=== PATIENT | female | born 1980 | race Caucasian/White ===

== ENCOUNTER 2021-01-23 15:17 | Outpatient (REF) | payer MEDICAID, OTHER, SELFPAY ==
--- NOTE | ~2021-01-23 | MM_ITS ---
EXAMINATION: MM SCREENING DIGITAL BREAST TOMOSYNTHESIS, BILATERAL CLINICAL INFORMATION: Screening. Asymptomatic. The lifetime risk of breast cancer based on the Tyrer-Cuzick Model is 6%. COMPARISON: Mammography: 04/06/2019, 04/04/2018, 02/16/2017 TECHNIQUE: Digital breast tomosynthesis is performed in both the craniocaudal and mediolateral oblique views along with computer-aided detection (CAD). Synthesized 2D images are generated from the tomosynthesis. Additional right CC view is provided. FINDINGS: There are scattered areas of fibroglandular density (ACR BI-RADS breast composition Category b). There are no significant masses, abnormal calcifications, or other abnormalities. There is a biopsy clip marker again noted left breast mid upper outer quadrant. There are stable punctate regional calcifications upper outer left breast. Parenchymal pattern is similar to prior studies. MM/MM tomosynthesis screening BI IMPRESSION: No mammographic evidence of malignancy. ASSESSMENT: BI-RADS 2: Benign RECOMMENDATION: Routine annual mammography screening. This patient's information was entered into a reminder system with a target due date for their next mammogram.
== END 2021-01-23 15:18 | disposition home or self-care (01) ==
LOC: HO.MAMMO 15:17
PROVIDERS: Visit Provider Advanced Practice Midwife
DX: Z12.31 Encounter for screening mammogram for malignant neoplasm of breast (principal)
CPT/HCPCS: 77063; 77067

== ENCOUNTER 2022-01-20 13:20 | Outpatient (REF) | payer MEDICAID, OTHER, SELFPAY ==
--- NOTE | ~2022-01-20 | MM_ITS ---
EXAMINATION: MM DIAGNOSTIC DIGITAL BREAST TOMOSYNTHESIS, BILATERAL US DIAGNOSTIC ULTRASOUND BREAST, RIGHT CLINICAL INFORMATION: Due for yearly. Right lateral breast pain for 2 weeks. No palpable mass or discharge. Prior benign left stereotactic biopsy 2016 (benign breast tissue with no specific microscopic abnormality. Multiple microcalcifications present). The lifetime risk of breast cancer based on the Tyrer-Cuzick Model is 6%. COMPARISON: Mammography: 01/23/2021, 04/06/2019, 04/04/2018, 02/16/2017, 07/21/2016, 07/12/2016 TECHNIQUE: Digital breast tomosynthesis is performed in both the craniocaudal and mediolateral oblique views along with computer-aided detection (CAD). Synthesized 2D images are generated from the tomosynthesis. Ultrasound right breast is targeted to the outer breast in area of patient symptoms. Grayscale imaging and color Doppler are performed without and with harmonics. FINDINGS: There are scattered areas of fibroglandular density (ACR BI-RADS breast composition Category b). Parenchymal pattern is similar to prior studies and there is no developing density or interval mass or architectural abnormality. No abnormal calcifications. Left breast again has biopsy clip marker mid upper outer quadrant. There are numerous uniform small punctate round calcifications similar to prior diagnostic exams. The axilla are unremarkable. No skin thickening or coarsening of the Niranjan's ligaments. Ultrasound right breast demonstrates no cystic or solid mass or architectural abnormality or focal duct ectasia. No skin thickening or edema tracking in soft tissue planes. Results are discussed with the patient at time of visit, using an wastewater operator. MM/MM tomosynthesis diagnostic BI IMPRESSION: -No mammographic evidence of malignancy or inflammatory changes. -Unremarkable right breast ultrasound. ASSESSMENT: BI-RADS 2: Benign RECOMMENDATION: 1. Patient's right breast pain should be managed based on the clinical impression. 2. Otherwise, routine annual screening mammography. This patient's information was entered into a reminder system with a target due date for their next mammogram.
== END 2022-01-20 13:21 | disposition home or self-care (01) ==
LOC: HO.MAMMO 13:20
PROVIDERS: Visit Provider Advanced Practice Midwife
DX: N64.4 Mastodynia (principal)
CPT/HCPCS: 76642; 77062; 77066

== ENCOUNTER 2022-12-16 13:55 | Outpatient (REF) | payer MEDICAID, OTHER, SELFPAY | END 2022-12-16 13:56 | disposition home or self-care (01) | LOC: HO.MAMMO 13:55 | PROVIDERS: PCP Internal Medicine; Visit Provider Internal Medicine | DX: Z13.89 Encounter for screening for other disorder (principal) ==

== ENCOUNTER 2023-01-24 16:00 | Outpatient (REF) | payer MEDICAID, OTHER, SELFPAY ==
--- NOTE | ~2023-01-24 | MM_ITS ---
EXAMINATION: MM SCREENING DIGITAL BREAST TOMOSYNTHESIS, BILATERAL CLINICAL INFORMATION: Screening. Asymptomatic. COMPARISON: Mammography: This study is compared with prior exams dating back to 2019. TECHNIQUE: Digital breast tomosynthesis is performed in both the craniocaudal and mediolateral oblique views along with computer-aided detection (CAD). Synthesized 2D images are generated from the tomosynthesis. FINDINGS: There are scattered areas of fibroglandular density (ACR BI-RADS breast composition Category b). There are no significant masses, abnormal calcifications, or other abnormalities. There is a tissue marker in the left breast from prior benign percutaneous biopsy. There are scattered, unchanged, benign calcifications in the upper-outer quadrant of the left breast. MM/MM tomosynthesis screening BI IMPRESSION: No mammographic evidence of malignancy. ASSESSMENT: BI-RADS BI-RADS 2 - Benign Findings RECOMMENDATION: Routine annual mammography screening. 1 year F/U This examination should not preclude the clinical evaluation of a suspicious palpable abnormality. This patient's information was entered into a reminder system with a target due date for their next mammogram.
== END 2023-01-24 16:01 | disposition home or self-care (01) ==
LOC: HO.MAMMO 16:00
PROVIDERS: PCP Internal Medicine; Visit Provider Internal Medicine
DX: Z12.31 Encounter for screening mammogram for malignant neoplasm of breast (principal)
CPT/HCPCS: 77063; 77067

== ENCOUNTER → 2023-01-24 16:15 | Outpatient (BNV) | payer SELFPAY | PROVIDERS: PCP Internal Medicine; Visit Provider Radiology Diagnostic Radiology | DX: Z12.31 Encounter for screening mammogram for malignant neoplasm of breast (principal) | CPT/HCPCS: 77063; 77067 ==

== ENCOUNTER 2023-02-16 08:27 | Outpatient (REF) | payer MEDICAID, OTHER, SELFPAY ==
[2023-02-16 14:21] LABS: MANUAL DIFF FLAG NO
[2023-02-16 14:24] LABS: Basophils Absolute Auto 0.1 X10*3/uL (0.0-0.2); Eosinophils Absolute Auto 0.2 X10*3/uL (0.0-0.4); Eosinophils Percent Auto 3.6 % (0-4); Hematocrit 39.6 % (37.0-47.0); Hemoglobin 13.2 g/dl (12.0-16.0); Imm Gran Abs Auto 0.02 X10*3/uL (0.00-0.03); Imm Gran Pct Auto 0.4 % (0.0-0.4); Lymphocytes Absolute Auto 1.3 X10*3/uL (1.2-4.9); Lymphocytes Percent Auto 26.9 % (20-40); Mean Corpuscular HGB Conc 33.3 g/dl (31.0-35.0); Mean Corpuscular Hemoglobin 32.2 pg (27.0-33.0); Mean Corpuscular Volume 96.6 fL (80.0-98.0); Mean Platelet Volume 11.9 fL (9.4-12.3); Monocytes Absolute Auto 0.3 X10*3/uL (0.1-1.2); Neutrophils Absolute Auto 3.1 x10*3/uL (2.0-8.3); Neutrophils Percent Auto 62.1 % (45-73); Platelet Count 301 X10*3/uL (160-400); Red Cell Distribution Width 13.1 % (11.0-16.0)
[2023-02-16 14:41] LABS: Alanine Aminotransferase 14 U/L (0-31); Albumin Level 4.1 g/dL (3.5-5.0); Alkaline Phosphatase 72 U/L (39-117); Anion Gap 12 (12-20); Aspartate Amino Transferase 17 U/L (5-31); Bilirubin Total 0.4 mg/dL (0.0-1.0); Blood Urea Nitrogen 11 mg/dL (9-16); Carbon Dioxide 26 mmol/L (22-29); Chloride 107 mmol/L (96-108); Estimated Glomerular Filt Rate > 60; Glucose Fasting 92 mg/dL (60-99); Iron 177 mcg/dL (30-160); Percent Iron Saturation 61 % (15-50); Potassium 3.5 mmol/L (3.3-5.1); Sodium 141 mmol/L (135-145); Total Iron Binding Capacity 289 mcg/dL (228-428); Total Protein 7.4 g/dL (6.5-8.0); Unsaturated Iron Binding 112 ug/dL
[2023-02-16 15:01] LABS: TSH reflex Free T4 0.68 uIU/mL (0.32-4.0)
[2023-02-16 15:10] LABS: Folate 13.5 ng/mL (> or = 4.0); Vitamin B12 532 pg/mL (200-900)
[2023-02-17 08:07] LABS: ~HepC Num1 0.13 S/CO (0.00-0.79); ~Hepatitis C Antibody Nonreactive (Nonreactive)
== END 2023-02-16 08:28 | disposition home or self-care (01) ==
LOC: HO.CHCLDS 08:27
PROVIDERS: Visit Provider Internal Medicine
DX: R53.83 Other fatigue (principal)
CPT/HCPCS: 36415; 80053; 82607; 82746; 83540; 84443; 85025; 86803

== ENCOUNTER 2024-01-30 15:56 | Outpatient (REF) | payer MEDICAID, OTHER, SELFPAY ==
--- NOTE | ~2024-01-30 | MM_ITS ---
EXAMINATION: MM SCREENING DIGITAL BREAST TOMOSYNTHESIS, BILATERAL CLINICAL INFORMATION: Screening. Asymptomatic. COMPARISON: Mammography: Comparison is made with available priors TECHNIQUE: Digital breast mammography with tomosynthesis is performed in both the craniocaudal and mediolateral oblique views along with computer-aided detection (CAD). FINDINGS: There are scattered areas of fibroglandular density (ACR BI-RADS breast composition Category b). Left marker clip. There are no significant masses, abnormal calcifications, or other abnormalities. MM/MM tomosynthesis screening BI IMPRESSION: No mammographic evidence of malignancy. ASSESSMENT: BI-RADS BI-RADS 2 - Benign Findings RECOMMENDATION: Routine annual mammography screening. 1 year F/U This examination should not preclude the clinical evaluation of a suspicious palpable abnormality. This patient's information was entered into a reminder system with a target due date for their next mammogram. Electronically signed by: Shae Hernandez DO 02/09/2024 09:38 AM [facility]
== END 2024-01-30 15:57 | disposition home or self-care (01) ==
LOC: HO.MAMMO 15:56
PROVIDERS: PCP Internal Medicine; Visit Provider Internal Medicine
DX: Z12.31 Encounter for screening mammogram for malignant neoplasm of breast (principal)
CPT/HCPCS: 77063; 77067

== ENCOUNTER → 2024-01-30 16:00 | Outpatient (BNV) | payer MEDICAID, SELFPAY | PROVIDERS: PCP Internal Medicine; Visit Provider Internal Medicine | DX: Z12.31 Encounter for screening mammogram for malignant neoplasm of breast (principal) | CPT/HCPCS: 77063; 77067 ==

== ENCOUNTER 2025-02-04 16:05 | Outpatient (REF) | payer MEDICAID, OTHER, SELFPAY ==
--- NOTE | ~2025-02-04 | MM_ITS ---
EXAMINATION: MM SCREENING DIGITAL BREAST TOMOSYNTHESIS, BILATERAL CLINICAL INFORMATION: Screening. Asymptomatic. COMPARISON: Mammography: Comparison is made with available priors TECHNIQUE: Digital breast mammography with tomosynthesis is performed in both the craniocaudal and mediolateral oblique views along with computer-aided detection (CAD). FINDINGS: There are scattered areas of fibroglandular density. Left marker clip. There are no significant masses, abnormal calcifications, or other abnormalities. MM/MM tomosynthesis screening BI IMPRESSION: No mammographic evidence of malignancy. ASSESSMENT: BI-RADS Category 2: Benign RECOMMENDATION: Routine annual mammography screening. 1 year F/U This examination should not preclude the clinical evaluation of a suspicious palpable abnormality. This patient's information was entered into a reminder system with a target due date for their next mammogram. Electronically signed by: Shae Hernandez DO 02/04/2025 04:25 PM [facility]UMBLE
--- OUTSIDE RECORDS SUMMARY | 2025-02-04 18:39 | XMS_ITS | Clinical Summary ---
Author Organization [facility] Address [address] [place] [address] Care Team Providers Care Flatwork Washer Name Role Phone Param Tovar MD Primary Care Prov ider Allergies No known active allergies Medications omeprazole (PriLOSEC) 20 mg capsule Take 20 mg by mouth once a day. 12/01/2021 Active Active Problems Problem Noted Date Diagnosed Date Leg pain, anterior, left 05/07/2022 Assessment & Plan (05/07/2022 4:22 PM EST): Anjali was seen and examined by myself and Dr. Harpreet Guerra. After thorough examination we discussed that there was no discrete mass on examination today. Therefore no surgical excision would be recommended at this time. Her main complaint of pain could be addressed through a course of physical therapy to address any weaknesses, asymmetry, gait instability as that may be present. Especially in the setting of previous trauma to that area. Anjali will arrange physical therapy closer to her home through her primary care doctor. She was agreeable to this plan. She had no additional questions or concerns to close the visit. Anjali can follow-up with the general surgery team on an as-needed basis. We would happily see her again if new symptoms arose that need to be addressed. Social History Tobacco Use Types Packs/Day Years Used Date Smoking Tobacco: Never Assessed Comments Unknown Sex and Gender Information Value Date Recorded Sex Assigned at Not on file Legal Sex Female 10:06 AM EST Gender Identity Not on file Sexual Orientation Not on file Last Filed Vital Signs Vital Sign Reading Time Taken Comments Blood Pressure 112/76 05/07/2022 3:39 PM EST Pulse 61 05/07/2022 3:39 PM EST Temperature 35.6 C (96.1 F) 05/07/2022 3:39 PM EST Respiratory Rate - - Oxygen Saturation - - Inhaled Oxygen Concentration - - Weight 60.8 kg (134 lb) 05/07/2022 3:39 PM EST Height - - Body Mass Index - - Plan of Treatment Health Maintenance Due Date Last Done Comments Cervical Cancer Screening 1980 HIV Screening 1980 HPV and Pap Smear 1980 Hepatitis C Screening 1980 Pap Smear 1980 Varicella Vaccines (1 of 2 - 13+ 2-dose series) 02/13/1993 Hepatitis B Vaccines (1 of 3 - 19+ 3-dose series) 02/13/1999 Mammogram 2020 Alcohol/Substance Use Screening 03/07/2024 Depression Screening and Follow-Up 03/07/2024 Social Drivers of Health Annual Screening 03/07/2024 DTaP,Tdap,and Td Vaccines (2 - Td or Tdap) 06/03/2024 06/03/2014, 03/07/2006 Influenza Vaccine (#1) 2024 , 01/06/2021, 01/04/2020, Additional history exists COVID-19 Vaccine ( season) 2024 04/17/2021, 06/19/2020 Pneumococcal Vaccine: Pediatric (0-5 Years) and At-Risk Patients (6-50 Years) Aged Out No longer eligible based on patient's age to complete this topic Insurance [facility] Care Teams Flatwork Washer Relationship Specialty Start Date End Date BarraganParam Mclean MD [address] [place] [id number] PCP - General 01/22/22
--- OUTSIDE RECORDS SUMMARY | 2025-02-04 18:39 | XMS_ITS | Encounter Summary ---
Author Organization [facility] Address [address] [place] [address] Care Team Providers Care Hosiery Operator Name Role Phone Param Tovar MD Primary Care Prov ider Encounter Details Date Type Department Care Team (Late st Contact Info) Description 02/04/2025 Orders Only [facility] [address] [place] [address] Param Tovar MD [address] [place] [address] Social History Tobacco Use Types Packs/Day Years Used Date Smoking Tobacco: Never Smokeless Tobacco: Never Alcohol Use Standard Drinks/Week Comments Not Currently 0 (1 standard drink = 0.6 oz pur e alcohol) Depression Answer Date Recorded Patient Health Questionnaire-9 Score 0 12/20/2024 Patient Health Questionnaire-9 Score 0 12/20/2024 Last PHQ-9: Questionnaire Data Not on file 1 Housing Stability Answer Date Recorded What is your housing situation today? I have aquiles kwok 12/20/[address] you li ve. Do you have problems with any of the following? None of the above 12/20/2024 Food Insecurity Answer Date Recorded Within the past 12 months, y ou worried that your food would run out before you got money to buy more: Never True 12/20/2024 Within the past 12 months,th e food you bought just didn't last and you didn't have enough money to get more: Never True Transportation Answer Date Recorded In the past 12 months, has l ack of transportation kept you from medical appts, meetings, work or from getting things needed for daily living? No 12/20/2024 Utilities Answer Date Recorded In the past 12 months, has t he electric, gas, oil or water company threatened to shut off services in your home? No 12/20/2024 Depression Answer Date Recorded Patient Health Questionnaire-2 Score 0 12/20/2024 Internet Access Answer Date Recorded Internet Access Q1 Yes 12/20/2024 Internet Access Q2 Not on file 12/20/2024 Comments Unknown Sex and Gender Information Value Date Recorded Sex Assigned at Female 01/04/2022 10:20 AM EDT Legal Sex Female 10:20 AM EDT Gender Identity Female 01/04/2022 10:20 AM EDT Sexual Orientation Straight 01/04/2022 10 :20 AM EDT documented as of this encounter Plan of Treatment Upcoming Encounters Date Type Department Care Team (Late st Contact Info) Description 02/05/2025 11:00 AM EST Procedure Visit [facility] [address] [place] [address] Sakina Amin CNM [address] [place] [address] documented as of this encounter Procedures Procedure Name Priority Date/Time Associated Diagnosis Comments BI MAMMOGRAM SCREENING TOMOSYNTHESIS BILATERAL Routine 02/04/2025 4:07 PM EST documented in this encounter Results * BI Mammogram Screening Tomosynthesis Bilateral (02/04/2025 4:07 PM EST) Anatomical Region Laterality Modality Breast Bilateral Mammography 02/04/2025 4:07 PM EST Narrative 02/04/2025 4:28 PM EST [facility] [address] [place] [address] Mammography Report Signed Patient: Anjali Olsen MR#: [id number] 4 : 1980 Acct:[id number] Age/Sex: 44 / F ADM Date: 02/04/25 Loc: HO.MAMMO Attending Dr: Param Douglas MD Ordering Physician: Param Tovar MD Res ults: 2Benign Date of Service: 02/04/25 Follow Up: 1 Year From Orig inal Mammogram Procedure(s): MM tomosynthesis screening BI Accession Number(s): [id number] cc: Param Tovar MD Reason For Exam: SCREENING EXAMINATION: MM SCREENING DIGITAL BREAST TOMOSYNTHESIS, BILATERAL CLINICAL INFORMATION: Screening. Asymptomatic. COMPARISON: Mammography: Comparison is made with available priors TECHNIQUE: Digital breast mammography with tomosynthesis is performed in both the craniocaudal and mediolateral oblique views along with computer-aided detection (CAD). FINDINGS: There are scattered areas of fibroglandular density. Left marker clip. There are no significant masses, abnormal calcifications, or other abnormalities. MM/MM tomosynthesis screening BI IMPRESSION: No mammographic evidence of malignancy. ASSESSMENT: BI-RADS Category 2: Benign RECOMMENDATION: Routine annual mammography screening. 1 year F/U This examination should not preclude the clinical evaluation of a suspicious palpable abnormality. This patient's information was entered into a reminder system with a target due date for their next mammogram. Electronically signed by: Shae Hernandez DO 02/04/2025 04:25 PM [facility] Dictated By: Shae Hernandez DO Signed By: <Electronically signed by Shae Hernandez DO in OV> 02/04/25 1625 DD/ 1607 TD/TT: 02/04/25 1622 Freight Forwarder: Procedure Note Donotuseinterpreter, Image - [facility] [address] [place] [address] Mammography Report Signed Patient: Gold Olsen#: [id number] 4 : 1980Acct:[id number] Age/Sex: 44 / FADM Date: 02/04/25 Loc: HO.MAMMO Attending Dr: Param Douglas MD Ordering Physician: Param Tovar ults: 2Benign Date of Service: 02/04/25Follow Up: 1 Year From Orig inal Mammogram Procedure(s): MM tomosynthesis screening BI Accession Number(s): [id number] cc: Param Tovar MD Reason For Exam: SCREENING EXAMINATION: MM SCREENING DIGITAL BREAST TOMOSYNTHESIS, BILATERAL CLINICAL INFORMATION: Screening. Asymptomatic. COMPARISON: Mammography: Comparison is made with available priors TECHNIQUE: Digital breast mammography with tomosynthesis is performed in both the craniocaudal and mediolateral oblique views along with computer-aided detection (CAD). FINDINGS: There are scattered areas of fibroglandular density. Left marker clip. There are no significant masses, abnormal calcifications, or other abnormalities. MM/MM tomosynthesis screening BI IMPRESSION: No mammographic evidence of malignancy. ASSESSMENT: BI-RADS Category 2: Benign RECOMMENDATION: Routine annual mammography screening. 1 year F/U This examination should not preclude the clinical evaluation of a suspicious palpable abnormality. This patient's information was entered into a reminder system with a target due date for their next mammogram. Electronically signed by: Shae Hernandez DO 02/04/2025 04:25 PM [facility] Dictated By: Shae Hernandez DO Signed By: <Electronically signed by Shae Hernandez DO in OV> 02/04/25 1625 DD/ 1607 TD/TT: 02/04/25 1622 Freight Forwarder: Param Douglas MD IMG BI PROCEDURES Final Result documented in this encounter Visit Diagnoses Not on filedocumented in this encounter Additional Health Concerns Assessment Noted Time PHQ-9 Depression Total Score: 0 12/21/19 25 10:43 AM EDT documented as of this encounter Care Teams Hosiery Operator Relationship Specialty Start Date End Date Param Tovar MD [address] [place] [id number] PCP - General Internal Medicine 08/05/19 documented as of this encounter
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
--- OUTSIDE RECORDS SUMMARY | 2025-02-04 18:39 | XMS_ITS | Encounter Summary ---
Author Organization [employer] Address [address] [place] [address] Care Team Providers Care Stained Glass Painter Name Role Phone Param Tovar MD Primary Care Prov ider Encounter Details Date Type Department Care Team (Late st Contact Info) Description 02/04/2025 Telephone [facility] [address] [place], [place] [phone] Brunilda Regalado MA Social History Tobacco Use Types Packs/Day Years [...] AM EDT documented as of this encounter Miscellaneous Notes * Telephone Encounter - Brunilda Regalado MA - 02/04/2025 11:19 AM EST Chart Prep Labs: not done Images: not applicable Referrals: not applicable Vaccines due: Covid, Flu, Tdap, and HPV Screenings: not applicable Overdue care gaps: Not applicable documented in this encounter Plan of Treatment Upcoming Encounters Date Type Department Care Team (Late st Contact Info) Description 02/05/2025 11:00 AM EST Procedure Visit [facility] [address] [place] [address] Sakina Amin CNM [address] [place] [address] documented as of this encounter Visit Diagnoses Not on filedocumented in this encounter Additional Health Concerns Assessment Noted Time PHQ-9 Depression Total Score: 0 12/21/19 25 10:43 AM EDT documented as of this encounter Care Teams Stained Glass Painter Relationship Specialty Start Date End Date Param Tovar MD [address] [place] [address] PCP - General Internal Medicine 08/05/19 documented as of this encounter
== END 2025-02-04 16:06 | disposition home or self-care (01) ==
LOC: HO.MAMMO 16:05
PROVIDERS: PCP Internal Medicine; Visit Provider Internal Medicine
DX: Z12.31 Encounter for screening mammogram for malignant neoplasm of breast (principal)
CPT/HCPCS: 77063; 77067

== ENCOUNTER → 2025-02-04 16:15 | Outpatient (BNV) | payer SELFPAY | PROVIDERS: PCP Internal Medicine; Visit Provider Internal Medicine | DX: Z12.31 Encounter for screening mammogram for malignant neoplasm of breast (principal) | CPT/HCPCS: 77063; 77067 ==